=== PATIENT | female | born 1955 | race Caucasian/White ===

== ENCOUNTER 2018-08-01 10:15 | Inpatient (IN) ==
[2018-08-01] MEDS ORDERED: Ringers Solution, Lactated 1,000 ML IVC SCH (16:15)
[2018-08-01 17:14] LABS: Basophils # 0.1 K/mcL (0.0-0.2); Basophils % 0.7 %; Eosinophils # 0.6 K/mcL (0.0-0.6); Eosinophils % 5.3 %; Hematocrit 42.1 % (35.3-44.9); Hemoglobin 14.1 g/dL (11.5-15.4); Immature Granulocytes % 0.3 % (0-4); Lymphocytes # 2.9 K/mcL (0.6-4.6); Lymphocytes % 25.9 %; Mean Corpuscular HGB Conc 33.5 g/dL (31.6-35.5); Mean Corpuscular Volume 95.5 fL (83.0-100.0); Mean Platelet Volume 9.7 fL (9.4-12.4); Monocytes # 0.5 K/mcL (0.0-1.3); Monocytes % 4.7 %; Platelet Count 205 K/mcL (140-400); Red Blood Count 4.41 M/mcL (3.82-4.97); Red Cell Distribution Width 12.3 % (11.5-14.5); Segmented Neutrophils % 63.1 %
[2018-08-01 17:34] LABS: BUN/Creatinine Ratio 34 (6-26); Blood Urea Nitrogen 24 mg/dL (8-23); Calcium 9.7 mg/dL (8.6-10.3); Carbon Dioxide 24 mEq/L (23-29); Chloride 107 mEq/L (98-107); Glucose 79 mg/dL (70-105); Osmolality,Calculated 291 (280-300); Potassium 4.3 mEq/L (3.5-5.1); Sodium 139 mEq/L (136-145); eGFR For Non-African Americans > 60 (> 60)
[2018-08-01] MEDS: *HR* HYDROcodone/Acet 5/325 mg TABLET PO PRN (19:20)
--- NOTE | 2018-08-01 19:20 | Spine - History & Physical Rep ---
Date of Encounter: 08/01/18 Time of Encounter: 19:15 Assessment and Plan (1) Cervical myelopathy Current visit: Yes Status: Chronic (2) Cervical spinal cord compression Current visit: Yes Status: Chronic on physical exam the patient is alert and answers questions appropriately. Afebrile vital signs stable. Trachea is midline. Lungs are clear. Cardiovascular regular rate and rhythm. Abdomen is soft nontender nondistended. She has an unsteady gait pattern. She has a positive Kenan sign. She has hyperreflexia in the upper and lower extremities. She has a positive inverted radial reflex. She has some diminished sensation to light touch in the distal upper extremies. She has no clonus. There is no clubbing, cyanosis, or edema. MRI of the cervical spine reveals moderate/severe stenosis centrally C3-C7. There are multilevel degenerative changes. There is severe bilateral foraminal stenosis C3-C7. There is myelomalacia on T2 images of the cervical cord from C3-C5. Impression: 1) cervical myelopathy 2) spinal cord compression 3) cervical stenosis 4) myelomalacia of the cervical cord Plan: Due to her progressive symptoms, worsening gait, abnormal upper motor neuron findings, and likelihood for neurologic progression I find it reasonable to consider surgery in the form of a posterior cervical fusion C3-C7. Risk, benefits, and possible complications were discussed and the patient would like to proceed. Patient understands she needs medical clearance and optimization prior to surgery. (3) Cervical stenosis of spinal canal Current visit: Yes Status: Chronic (4) Myelomalacia of cervical cord Current visit: Yes Status: Chronic History of Present Illness Chief complaint: Difficulty walking, clumsy, difficulty controlling hands. HPI: Ms. Qureshi is a 63 year old female who complains of progressive worsening in gait, clumsiness, impairment and hand dexterity, and radicular symptoms in the upper extremities. She also complains of numbness in her hands. Symptoms have worsened over the past several weeks such that she now requires a cane as an ambulatory aid and has had several falls. she has significant difficulty with buttoning buttons, manipulation of utensils, and handwriting changes. She was seen in pain management by Dr. Riggins and was immediately referred for urgent surgical consultation. Due to her progressive symptoms she was admitted for definitive management. She denies bowel or bladder symptoms. She admits to difficulty walking and gait instability. Past Med Surg Social Fam HX - Past Medical History Medical history: COPD, GERD, hypertension Additional medical history: Neuropathy, gastric ulcer, Emphysema Psychiatric history: anxiety - Past Surgical History Additional surgical history: left leg surgery, broken colar bone, right wrist fx - Social History Smoking Status: Unknown if ever smoked Smokeless Tobacco Status: No Alcohol use: none Drug use: none - Family History Mother Hx Family Respiratory Disorders: Yes (COPD) Medications and Allergies ALPRAZolam [Xanax 1 MG Tablet] 1 mg PO TID 08/01/18 [History] Gabapentin [Neurontin] 600 mg PO TID 08/01/18 [History] Metoprolol [Lopressor] 50 mg PO BID 08/01/18 [History] Temazepam [Restoril] 30 mg PO HS 08/01/18 [History] Allergy/AdvReac Type Severity Reaction Status Date / Time No Known Allergies Allergy Verified 08/01/18 14:38 Results - Labs Result Diagrams: 08/01/18 16:25 08/01/18 16:25 Labs: Abnormal lab results BUN 24 mg/dL (8-23) H 08/01/18 16:25 BUN/Creatinine Ratio 34 (6-26) H 08/01/18 16:25 H & H 08/01/18 Range/Units 16:25 Hgb 14.1 (11.5-15.4) g/dL Hct 42.1 (35.3-44.9) % All other labs normal. - VTE Reasons for not Prescribing Prophylaxis: Treatment not Indicated - Low risk for VTE
--- NOTE | 2018-08-01 20:04 | Anesthesia Evaluation PreOp ---
Date of Encounter: 08/01/18 Time of Encounter: 20:02 - Past History Planned Operation: C3-7 Posterior Cervical Fusion re: cervical myelpathy Cardiac History: HTN Pulmonary History: COPD [employer]ECTIVE [employer] E[employer] History: Other (Unsteady gait & hyperreflexic upper/lower extremities [per H&P] secondary to moderate/severe cervical stenosis & myelomalacia. Peripheral Neuropathy/Burning pain R>>L hands, feet & legs) Other Medical History: Denies Any Significant HX, GERD (Hx gastric ulcer) Anesthesia History: No Prior Anesthetic Complications, Past Anesthesia (LLE surgery, R-wrist Fx) Alcohol Use: none Drug use: none Medications and Allergies ALPRAZolam [Xanax 1 MG Tablet] 1 mg PO TID 08/01/18 [History] Gabapentin [Neurontin] 600 mg PO TID 08/01/18 [History] Metoprolol [Lopressor] 50 mg PO BID 08/01/18 [History] Temazepam [Restoril] 30 mg PO HS 08/01/18 [History] Allergy/AdvReac Type Severity Reaction Status Date / Time No Known Allergies Allergy Verified 08/01/18 14:38 - Meds/Allergy Pre-op Review Medications Reviewed: Yes Allergies Reviewed: Yes Beta Blockers on Current Med List: Yes (Metoprolol) If Beta Blockers taken, Date/Time (Last Dose taken): 08/01/2018 @ 2100 Anesthesia Results - Labs 08/01/18 16:25 08/01/18 16:25 Laboratory Results Laboratory Tests 08/01/18 08/01/18 16:25 16:25 APTT 30.2 Creatinine 0.70 Est GFR (Non-Af Amer) > 60 Cervical MRI 06/28/2018 IMPRESSION: Probable mild high T2 signal abnormality within the cervical spinal cord from C3 through C5. Mild myelomalacia is suspected. Moderate central canal stenosis from C3 through C7 due to shallow broad disc osteophyte complex and posterior ligamentous hypertrophy as well as congenitally short pedicles. Multilevel bilateral neural foraminal stenosis of moderate to severe degree as noted above. - Imaging EKG: pending Chest x-ray: report reviewed Additional studies: Laboratory Results Impressions Chest X-Ray 08/01/18 16:08 IMPRESSION: Negative portable study. D/ / Gricelda Toribio Cha, MD / Gricelda Toribio Cha, MD Interpreting Provider: Gricelda Toribio Cha, MD Anesthesia Exam Vital Signs Temp Pulse Resp BP Pulse Ox 08/01/18 19:25 98.8 F 92 16 173/92 93 08/01/18 14:49 98.1 F 72 16 153/80 97 08/01/18 13:24 97.6 F 72 16 144/84 98 Intake and Output 08/01/18 08/01/18 08/01/18 07:59 15:59 23:59 Intake Total 240 / 240 Balance 240 / 240 Intake: Oral 240 / 240 Other: Meal Dinner Percent of Meal Consumed 100% Weight 43.5 kg Patient Weight 08/01/18 23:59 Weight 43.5 kg Height: 5'4" Weight: 95# bmi = 16.5 NPO (# of Hours): MNoc - HEENT Pupil (Motor): Pupils equal, EOMI Mallampati: II Teeth: Edentulous Denture Type: Upper: Complete, Partial Oral Opening: Greater than 3 - DETECTIVE PR[employer] E[employer] LOC: Oriented [employer]ECT[employer] Motor: Normal Face, Deficit RUE, Deficit LUE, Deficit RLE, Deficit LLE [employer] Sensory: Normal: Face, Deficit: RUE, LUE, RLE, LLE - Cardiac Rhythm: Regular Murmur: None - Pulmonary Breath Sounds: bilateral Clear Respiratory Effort: Symmetrical Anesthesia Assess/Plan ASA Score: 3 (COPD, HTN, Cervical myelopathy, GERD/gastric ulcer) Level of consciousness: Cooperative Anesthetic Plan: General Monitoring Plan: Standard Monitors Recovery Plan: PACU Anes Supervising Prov Stmt: Pt seen/evaluated, R&B Discussed, questions answered and consent obtained. Krysten Sierra MD
[2018-08-01] MEDS: ALPRAZolam 1 MG TABLET PO SCH (22:14)
[2018-08-01] MEDS: Temazepam 15 MG CAPSULE PO SCH (22:14)
[2018-08-01] MEDS: Gabapentin 300 MG CAPSULE PO SCH (22:14)
--- NOTE | 2018-08-01 22:22 | Internal Medicine Consult Note ---
<Ramón Watt - Last Filed: 08/01/18 22:44> Date of Encounter: 08/01/18 Time of Encounter: 22:20 - Assessment and plan (1) Nonspecific abnormal electrocardiogram (ECG) (EKG) Current Visit: Yes Status: Acute Assessment and plan: 63YO F consulted for preop evaluation (cervical vertebrae fusion). EKG done tonight shows ST changes in anterior leads V3-V4, PVCs, and possible IV conduction delay. Patient reports having CP when going up a flight of stairs. SOB with exertion. No CP at rest currently. No cardiac workup in the past. On metoprolol for HTN. Patient is a high risk for surgery at this time. - Ordered repeat EKG at 6AM and echo - Placed consult with cardiology - NPO midnight - Spoke with Dr. Ferrara and let him know our plan (2) DVT prophylaxis Current Visit: Yes Status: Acute Assessment and plan: SCD (3) Hypertension Current Visit: Yes Status: Acute Assessment and plan: Patient has chronic hypertension on metoprolol. NPO at midnight so put on labetolol 10mg Q6 PRN. Qualifiers: Qualified Code(s): I10 - Essential (primary) hypertension - Time Spent With Patient Total time spent is greater than 50% in coordination of care (as documented) at patient's floor/unit and/or counseling patient: Internal Medicine - CN: HPI - Data of Consult Patient: new to practice Consult date: 08/01/18 Requesting Physician: Judson Mir Jr MD - Consult Narrative Reason for consult: Preop evaluation History of present illness: Ms. Qureshi is a 63 year old female consulted by Dr. Ferrara for preop evaluation with history of HTN, COPD, anxiety, and cervical stenosis. Patient is scheduled for cervical fusion of C3-C7. EKG done today shows ST elevation in anterior leads V3-V4. Patient has never been evaluated by a fleet manager/dispatch. No previous EKG, echo, stress tests. She has no history of SD. She reports feeling CP when going up a flight of stairs, but not at rest. Also complains of dyspnea with exertion which may be related to COPD. Patient reports that she needs to sleep elevated with multiple pillows. Patient has hypertension with blood pressure of 170/90 most recently. She is on metoprolol for HTN. She currently denies CP, palpitations, SOB, diaphoresis, abdominal pain. Patient is not diabetic and has high cholesterol controlled on a statin. Denies family history of heart disease. Patient has COPD with a history of smoking for 40 years at 1PPD. She stopped smoking 1 month ago. Per ARISCAT score daniel is an intermediate risk (13.3%) of pulmonary related surgical complication. Patient reports having daily sputum that is yellow at baseline. Patient denies recent fever, N/V, changes in bowel movements or urination, weight changes. Past Med Surg Social Fam HX - Past Medical History Medical history: COPD, GERD, hypertension Additional medical history: Neuropathy, gastric ulcer, Emphysema Psychiatric history: anxiety - Past Surgical History Additional surgical history: left leg surgery, broken colar bone, right wrist fx - Social History Smoking Status: Unknown if ever smoked Smokeless Tobacco Status: No Alcohol use: none Drug use: none - Family History Mother Hx Family Respiratory Disorders: Yes (COPD) - Constitutional Constitutional: no chills, no fever(s), no weight gain, no weight loss - Cardiovascular Cardiovascular ROS IM: chest pain (with exertion), dyspnea, irregular heart rhythm - Respiratory Respiratory: cough, wheezing, excessive phlegm production - Gastrointestinal Gastrointestinal: no abdominal pain, no bloating, no constipation, no diarrhea - Genitourinary Genitourinary: no dysuria, no urinary frequency, no urinary urgency - Musculoskeletal Musculoskeletal ROS IM: neck pain - Neurological Neurological ROS: tingling, no focal weakness Additional comments: tingling of extremties on gabapentin Internal Medicine - CN: Meds ALPRAZolam [Xanax 1 MG Tablet] 1 mg PO TID 08/01/18 [History] Gabapentin [Neurontin] 600 mg PO TID 08/01/18 [History] Metoprolol [Lopressor] 50 mg PO BID 08/01/18 [History] Temazepam [Restoril] 30 mg PO HS 08/01/18 [History] Allergy/AdvReac Type Severity Reaction Status Date / Time No Known Allergies Allergy Verified 08/01/18 14:38 Hospitalist - CN: Exam - Constitutional Vitals: Temp Pulse Resp BP Pulse Ox 98.8 F 92 16 173/92 93 08/01/18 19:25 08/01/18 19:25 08/01/18 19:25 08/01/18 19:25 08/01/18 19:25 General appearance IM: Present: A&O X 3, pleasant, no acute distress Exam: . - Head Head exam: Present: atraumatic, normal inspection - Eye Eye exam: Present: EOMI, normal appearance. Absent: conjuntiva pink - Neck Neck exam general surgery: Present: tenderness, supple, trachea midline Additional comments: C4-C7 - Respiratory Respiratory exam: Present: wheezes. Absent: accessory muscle use, respiratory distress - Cardiovascular Cardiovascular exam IM: Present: RRR, +S1, +S2 - GI/Abdominal GI/Abdominal exam IM: Absent: tenderness - Extremities Exam Extremities exam IM: Present: normal capillary refill, pedal edema (Mild edema 1-2+), warm. Absent: cyanotic, tenderness - Neurological Exam Neurological exam: Present: alert, motor sensory deficit (B/L Upper and lower extermity weakness and sensory deficits), oriented X3 - Psychiatric Psychiatric exam: Present: normal affect - Skin Skin exam IM: Present: dry, intact, warm Internal Medicine - CN: Reslt - Labs CBC & Chem 7: 08/01/18 16:25 08/01/18 16:25 Labs: Short CBC 08/01/18 Range/Units 16:25 WBC 11.1 (4.3-11.1) K/mcL Hgb 14.1 (11.5-15.4) g/dL Hct 42.1 (35.3-44.9) % Plt Count 205 (140-400) K/mcL Neutrophils # 7.0 (1.6-8.9) K/mcL BMP 08/01/18 16:25 Sodium 139 Potassium 4.3 Chloride 107 Carbon Dioxide 24 BUN 24 H Creatinine 0.70 Glucose 79 Calcium 9.7 - Impressions Impressions Chest X-Ray 08/01/18 16:08 IMPRESSION: Negative portable study. D/ / Gricelda Toribio Cha, MD / Gricelda Toribio Cha, MD Interpreting Provider: Gricelda Toribio Cha, MD Consult Discharge Plan - Plan Referrals: NONE,PCP [Primary Care Provider] - <Afshin Oconnor - Last Filed: 08/02/18 08:04> Date of Encounter: 08/02/18 - Time Spent With Patient Total time spent is greater than 50% in coordination of care (as documented) at patient's floor/unit and/or counseling patient: Internal Medicine - CN: HPI - Data of Consult Requesting Physician: Judson Mir Jr MD - Consult Narrative History of present illness: Ms. Qureshi is a 63 year old female Hospitalist - CN: Exam - Constitutional Vitals: Temp Pulse Resp BP Pulse Ox 97.3 F L 65 17 118/77 93 08/02/18 07:43 08/02/18 07:43 08/02/18 07:43 08/02/18 07:43 08/02/18 07:43 Internal Medicine - CN: Reslt - Labs CBC & Chem 7: 08/02/18 05:31 08/02/18 05:31 Labs: Short CBC 08/01/18 08/02/18 Range/Units 16:25 05:31 WBC 11.1 7.2 (4.3-11.1) K/mcL Hgb 14.1 14.7 (11.5-15.4) g/dL Hct 42.1 44.2 (35.3-44.9) % Plt Count 205 210 (140-400) K/mcL Neutrophils # 7.0 (1.6-8.9) K/mcL BMP 08/01/18 08/02/18 16:25 05:31 Sodium 139 138 Potassium 4.3 4.4 Chloride 107 107 Carbon Dioxide 24 25 BUN 24 H 24 H Creatinine 0.70 0.82 Glucose 79 86 Calcium 9.7 9.7 - Impressions Impressions Chest X-Ray 08/01/18 16:08 IMPRESSION: Negative portable study. D/ / Gricelda Toribio Cha, MD / Gricelda Toribio Cha, MD Interpreting Provider: Gricelda Toribio Cha, MD - Attending Attestation I saw and evaluated the patient. I reviewed the residents note, performed my own physical examination and agree with findings and plan as documented in the residents note. Patient seen and examined on 08/01/18. Consult requested from Dr. Mir for preop clearance. History of COPD, and EKG found to be concerning. Patient has never been evaluated by cardiology. Patient has exertional dsypnea. Recommend cardiology evaluation with echocardiogram in the morning.
[2018-08-02] MEDS ORDERED: Bacitracin 50,000 UNIT, Polymyxin B Sulfate 500,000 UNIT, Sodium Chloride IRRigation 1,... IR ONE (06:00)
[2018-08-02 06:22] LABS: Hematocrit 44.2 % (35.3-44.9); Hemoglobin 14.7 g/dL (11.5-15.4); Mean Corpuscular HGB Conc 33.3 g/dL (31.6-35.5); Mean Corpuscular Hemoglobin 31.8 pg (28.0-33.3); Mean Corpuscular Volume 95.7 fL (83.0-100.0); Mean Platelet Volume 9.8 fL (9.4-12.4); Platelet Count 210 K/mcL (140-400); Red Blood Count 4.62 M/mcL (3.82-4.97); Red Cell Distribution Width 12.4 % (11.5-14.5)
[2018-08-02 06:43] LABS: BUN/Creatinine Ratio 29 (6-26); Blood Urea Nitrogen 24 mg/dL (8-23); Calcium 9.7 mg/dL (8.6-10.3); Carbon Dioxide 25 mEq/L (23-29); Chloride 107 mEq/L (98-107); Glucose 86 mg/dL (70-105); Osmolality,Calculated 289 (280-300); Potassium 4.4 mEq/L (3.5-5.1); Sodium 138 mEq/L (136-145); eGFR For Non-African Americans > 60 (> 60)
[2018-08-02] MEDS ORDERED: Ipratropium/Albuterol Neb 3 ML IH PRN (08:33)
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
[2018-08-02] MEDS ORDERED: *HR* Propofol 200 MG/20 ML VIAL IVP ONE (09:11)
[2018-08-02] MEDS ORDERED: Ondansetron 4 MG/2 ML VIAL ONE (09:11)
[2018-08-02] MEDS ORDERED: Neostigmine Methylsulfate 3 MG/3 ML SYRINGE ONE (09:11)
[2018-08-02] MEDS ORDERED: *HR* FentaNYL (PF) 100 MCG/2 ML VIAL ONE ×3 (09:11→15:43)
[2018-08-02] MEDS ORDERED: Lidocaine -MPF 2% 2 ML VIAL ONE (09:11)
[2018-08-02] MEDS ORDERED: Dexamethasone 4 MG/ML VIAL ONE ×2 (09:11)
[2018-08-02] MEDS ORDERED: *HR* Succinylcholine 200 MG/10 ML VIAL IVP ONE (09:11)
[2018-08-02] MEDS ORDERED: *HR* Rocuronium Bromide 50 MG/5 ML VIAL ONE (09:11)
--- NOTE | 2018-08-02 09:25 | Cardiology Consult Note ---
<Kell Palomino - Last Filed: 08/02/18 11:07> Date of Encounter: 08/02/18 Time of Encounter: 09:23 Assessment and Plan (1) Exertional chest pain Current Visit: Yes Status: Acute - echocardiogram shows EF 40-45% which is new - troponin, trend if not normal - Continue NPO through 08/03/18 - recommend cardiac cath, will try to add pt to schedule today - optimize medical management post cath - Pt is high risk for surgery at this time, recommend delaying planned ortho procedure until 30d after cath - will continue to follow (2) ST segment changes on electrocardiogram Current Visit: Yes Status: Acute - troponin - repeat EKG - echocardiogram - stress test 08/03/18 Discussion w patient/family: The assessment and plan as outlined above was discussed with the patient and/or family members who expressed understanding and agreement. All questions were answered. Thank you for involving us in the care of your patient. Please call with any questions. History of Present Illness Consult date: 08/02/18 Requesting physician: Afshin Oconnor Consult reason: pre-op clearance Chief complaint: spinal surgery History of present illness: Ms. Qureshi is a 63 year old female with PMHx of HTN, COPD that was admitted for cervical fusion surgery and reported a hx of chest pain with exertion that has been present for years but getting worse over the last three months. She reports that the pain starts when she is going up stairs or walking for any length of time, feels like a heaviness located substernally with radiation to left arm, is relieved by sitting for at least five minutes, and is a 10/10 in severity. She states that over the last three months it is happening more frequently and sometimes will happen every day. She also reports associated symptoms with the pain of diaphoresis, nausea without vomiting, lightheadedness. She denies syncope. She also reports that her feet and legs swell when she puts on shoes, but is relieved by taking her shoes off. She quit smoking 1 month ago after smoking 2 ppd x 45 years. She also reports a hx of a "bleeding ulcer" that was diagnosed 15 years ago. Past Med Surg Social Fam HX - Past Medical History Medical history: COPD, GERD, hypertension Additional medical history: Neuropathy, gastric ulcer, Emphysema Psychiatric history: anxiety - Past Surgical History Additional surgical history: left leg surgery, broken colar bone, right wrist fx - Social History Smoking Status: Unknown if ever smoked Smokeless Tobacco Status: No Alcohol use: none Drug use: none - Family History Mother Hx Family Respiratory Disorders: Yes (COPD) Medications and Allergies ALPRAZolam [Xanax 1 MG Tablet] 1 mg PO TID 08/01/18 [History] Gabapentin [Neurontin] 600 mg PO TID 08/01/18 [History] Metoprolol [Lopressor] 50 mg PO BID 08/01/18 [History] Temazepam [Restoril] 30 mg PO HS 08/01/18 [History] Cholecalciferol (Vitamin D3) [Vitamin D3] 10,000 unit PO QWEEK 08/02/18 [History] Cyclobenzaprine [Flexeril] 10 mg PO TID 08/02/18 [History] HydrOXYzine Pamoate [Vistaril] 50 mg PO DAILY 08/02/18 [History] Omeprazole [PriLOSEC] 40 mg PO DAILY 08/02/18 [History] Sertraline [Zoloft] 50 mg PO DAILY 08/02/18 [History] Simvastatin [Zocor] 40 mg PO HS 08/02/18 [History] Allergy/AdvReac Type Severity Reaction Status Date / Time No Known Allergies Allergy Verified 08/01/18 14:38 All Systems Review: The remainder of the systems were reviewed and are negative - Constitutional Constitutional: no chills, no fever(s) - Cardiovascular Cardiovascular: chest pain with exertion, diaphoresis, dyspnea on exertion, radiating jaw, neck or arm pain, leg edema, lightheadedness, no chest pain at rest, no syncope - Respiratory Respiratory: dyspnea, no cough - Gastrointestinal Gastrointestinal: nausea, no abdominal pain - Musculoskeletal Musculoskeletal: back pain - Psychiatric Psychiatric: anxiety Physical Examination Vital Signs, Last 4 Hours Temp Pulse Resp BP Pulse Ox 08/02/18 07:43 97.3 F L 65 17 118/77 93 08/02/18 05:30 97.8 F 70 16 108/68 95 General: Conversant, No Apparent Distress HEENT: Atraumatic, Normocephaly, Mucus Membranes Moist Neck: No JVD, Normal carotid pulses Cardiac: Other (diminished heart sounds) Lungs: Normal Breath Sounds, No Wheeze, Rales, Rhonchi Neuro: Alert and responsive, No focal deficits noted Abdomen: Soft, Non-Tender Skin: No rashes noted on visualized skin Musculoskeletal: No Chest Wall Tenderness Extremities: No Clubbing, No Cyanosis, No Edema, Normal Pulses Results 08/02/18 05:31 08/02/18 05:31 Lab Results 08/01/18 08/01/18 08/01/18 16:25 16:25 16:25 WBC 11.1 Hgb 14.1 Hct 42.1 Plt Count 205 APTT 30.2 Sodium 139 Potassium 4.3 Chloride 107 Carbon Dioxide 24 BUN 24 H Creatinine 0.70 Glucose 79 Calcium 9.7 08/02/18 12 05:31 05:31 WBC 7.2 Hgb 14.7 Hct 44.2 Plt Count 210 APTT Sodium 138 Potassium 4.4 Chloride 107 Carbon Dioxide 25 BUN 24 H Creatinine 0.82 Glucose 86 Calcium 9.7 - Imaging and Cardiology Chest Xray: report reviewed, image reviewed Echo: report reviewed Consult Discharge Plan - Plan Referrals: NONE,PCP [Primary Care Provider] - <Melissa Ayala - Last Filed: 08/02/18 15:59> Date of Encounter: 08/02/18 - Attending Attestation I examined this patient and my medical decision-making was reviewed with the Resident Physician. I agree with the documented findings, disposition and treatment plan as described. Ms. Qureshi presents with chest pain. She was planning elective surgery for cervical myelopathy. We were asked in consultation to risk stratify. Patient described a few month history of exertional chest pain associated with dyspnea limiting her functional activities. Does admit to known COPD/emphysema. Has risk factors for CAD including a long history of smoking. She had an echo performed demonstrating reduction of LVEF with moderate to severe AR. Given newly reduced LVEF in combination with exertional symptoms and risk factors for CVD in setting of preoperative evaluation for cervical fusion under general anesthesia, we have recommended proceeding with LHC for further diagnostic evaluation. The R/B/A of LHC were discussed with the patient in detail with family present. The patient expressed understanding of risks and agreement to proceed. LHC findings reviewed. Normal coronaries. LVEF 50% by LV gram. Case discussed with Dr. Mir. Patient does not require PCI. Recommend proceeding with surgery at moderate CV risk. Will need outpatient follow up to further evaluate aortic regurgitation. Will sign off. Assessment and Plan Discussion w patient/family: The assessment and plan as outlined above was discussed with the patient and/or family members who expressed understanding and agreement. All questions were answered. Thank you for involving us in the care of your patient. Please call with any questions. History of Present Illness History of present illness: Ms. Qureshi is a 63 year old female All Systems Review: The remainder of the systems were reviewed and are negative Physical Examination Vital Signs, Last 4 Hours Temp Pulse Resp BP Pulse Ox 08/02/18 12:06 97.9 F 59 18 120/72 95 Results 08/02/18 05:31 08/02/18 05:31 Lab Results 08/01/18 08/01/18 08/01/18 16:25 16:25 16:25 WBC 11.1 Hgb 14.1 Hct 42.1 Plt Count 205 APTT 30.2 Sodium 139 Potassium 4.3 Chloride 107 Carbon Dioxide 24 BUN 24 H Creatinine 0.70 Glucose 79 Calcium 9.7 Troponin I 08/02/18 08/02/18 08/02/18 05:31 05:31 10:08 WBC 7.2 Hgb 14.7 Hct 44.2 Plt Count 210 APTT Sodium 138 Potassium 4.4 Chloride 107 Carbon Dioxide 25 BUN 24 H Creatinine 0.82 Glucose 86 Calcium 9.7 Troponin I < 0.03
[2018-08-02] MEDS: ALPRAZolam 1 MG TABLET PO SCH ×3 (10:50→20:24)
[2018-08-02] MEDS: Gabapentin 300 MG CAPSULE PO SCH ×3 (10:50→20:24)
[2018-08-02] MEDS: *HR* HYDROcodone/Acet 5/325 mg TABLET PO PRN (10:51)
[2018-08-02] MEDS ORDERED: CeFAZolin Syr 2,000MG/20 ML 2,000 MG/20 ML SYRINGE IVPB ONE (11:00)
[2018-08-02] MEDS ORDERED: ISOVUE-370 200 ML INFUS..BTL ONE (12:59)
[2018-08-02] MEDS ORDERED: Nitroglycerin 1,000 MCG/10 ML VIAL IV ONE (12:59)
[2018-08-02] MEDS ORDERED: Heparin 1,000 UNITS/500 mL 500 ML ONE (12:59)
[2018-08-02] MEDS ORDERED: *HR* Heparin 10,000 UNIT/10 ML VIAL ONE (12:59)
[2018-08-02] MEDS ORDERED: 0.9 % Sodium Chloride 1,000 ML ONE ×3 (12:59→14:35)
--- NOTE | 2018-08-02 13:01 | Electrocardiograph Report ---
[address] [address] Test Date: 2018-08-01 Pat Name: Marielena Qureshi Department: 114 Room: [facility] Gender: F [employer] Rol[employer] Operator: JEMAL : 1955 Requested By: Judson Mir Order Number: [id number] Reading MD: Scotty Odonnell Measurements Intervals [place] Rate: 65 P: 64 PA: 156 QRS: -32 QRSD: 139 T: 97 QT: 436 QTc: 447 Interpretive Statements SINUS RHYTHM WITH OCCASIONAL Atrial premature complexes MARKED LEFT AXIS DEVIATION Left bundle branch block Electronically Signed On 08-02-2018 12:59:26 EST by Scotty Odonnell
--- NOTE | 2018-08-02 13:16 | Pre-Sedation Evaluation ---
Pre-sedation evaluation - Pre-sedation checklist Date of procedure: 08/02/18 Procedure: [facility] Recent Vitals: Last Vital Signs Temp 97.9 F 08/02/18 12:06 Pulse 59 08/02/18 12:06 Resp 18 08/02/18 12:06 BP 120/72 08/02/18 12:06 Pulse Ox 95 08/02/18 12:06 H&P (including ROS) documented in medical record: Yes Previous reaction to sedatives/anesthetics: No Dietary Status: NPO after Midnight Airway Assessment: Patient can open mouth completely, TMJ function normal, Micrognathia (under-bite, receding chin) absent, Neck with adequate range of mot ion Dentition: No loose teeth or bridges Possible difficult airway: No ASA Classification *see protocol: CLASS II-Mild systemic disease Plan of Care: Pt appropriate candidate for procedure/moderate/conscious sedation, Risks/benefits of procedure/sedation discussed w/ patient/family Cardiac Registry (Cardio Only) - Functional Capacity Functional Capacity: < 4 METS - Clincal Frailty Scale Clinical Frailty Scale: Vulnerable
--- NOTE | 2018-08-02 13:24 | Event Note ---
Date of Encounter: 08/02/18 Time of Encounter: 13:22 S/w Dr. Mir - he is requesting since patient has now become medical admission and is for the immediate foreseeable future nonoperative secondary to cardiac concerns - patient to be transfered to hospitalist service as primary. S/w Dr. Pepe who is in agreement.
[2018-08-02] MEDS ORDERED: *HR* Midazolam HCl 2 MG/2 ML VIAL ONE (14:47)
--- NOTE | 2018-08-02 16:01 | Invasive Diagnostic Lab Proc ---
Name: Marielena Qureshi Date of Study: 08/02/2018 Date: 1955 Ht: 64.2in Medical Record#: [id number] Age: 63 Wt: 94.80lb Gender: Female BSA: 1.43 Order #: [id number] BMI: 16.18 Physicians Procedure Physician: Layne Barnard MD, [facility] Referring MD: Referring MD: Staff Name Position Time In Michael Menon RT (R) Scrub 02:35 PM Umm Namita RT (R) Monitor 02:35 PM Ryan Joy RN Senior [employer] Consultant 02:35 PM Indications Indication Abnormal Test - ECHO Pre op Procedures Performed Procedure L HRT ARTERY/VENTRICLE ANGIO Pre-Procedure Checklist Informed consent is complete signed and on chart. H&P is on chart. ID band is on and ID verified with patient. Patient NPO for procedure The procedure was described for the patient and questions were answered. Blood Pressure: 120/72 ECG is on chart. Plan of Care Patient will tolerate the procedure without complications. Adequate level of comfort will be maintained. Hemodynamics will remain stable Patient will recover from procedure without complications. Respiratory function will be maintained. Cardiac rhythm will remain stable. Patient temperature will be maintained. Patient and/or family have verbalized understanding of the procedure. Patient Education Chief Complaint/Reason for Test: Cardiac Cath Developmental Category: Adult (18-64 years) Developmentally Appropriate for Age: Yes Learning Barriers: None Education Needs: Procedure Education Method: Verbal Information Taught: Cardiac Cath Educational Evaluation: Able to repeat information Intravenous Access Time IV Size Location DC'd Fluid/Drip Rate Units RN 01:32 PM 20g 1 09/02" Patent On Arrival Rt Antecubital 0.9NaCl 25 ml/hr Ryan Joy RN Allergies No Known Allergies Vital Signs Time BP (mmHg) HR (bpm) O2 Sat. RR (bpm) LOC 01:32 PM 120 / 72 59 95 % 18 5 = Fully awake and oriented or at pre-proc level 03:02 PM / % 5 = Fully awake and oriented or at pre-proc level 03:02 PM / % 5 = Fully awake and oriented or at pre-proc level 02:52 PM 160 / 80 56 98 % 3 02:56 PM 151 / 78 56 100 % 14 03:01 PM 137 / 79 56 100 % 14 03:06 PM 119 / 68 52 100 % 8 03:11 PM 122 / 65 52 100 % 11 04:24 PM 145 / 76 52 100 % 14 5 = Fully awake and oriented or at pre-proc level 04:29 PM 157 / 82 55 100 % 16 5 = Fully awake and oriented or at pre-proc level 04:34 PM 126 / 78 55 99 % 14 5 = Fully awake and oriented or at pre-proc level 03:52 PM 131 / 84 59 98 % 16 5 = Fully awake and oriented or at pre-proc level Procedural Medications Time Medication Dose Units Method Given By 02:55 PM Oxygen 2 L/min nasal cannula Ryan Joy RN 02:56 PM Versed 1 mg Intravenous Ryan Joy RN 02:56 PM Fentanyl 25 mcg Intravenous Ryan Joy RN 03:00 PM Versed 1 mg Intravenous Ryan Joy RN 03:00 PM Fentanyl 25 mcg Intravenous Ryan Joy RN 03:05 PM Lidocaine 2% 9 ml Subcutaneous Layne Barnard MD, FACC 03:49 PM Fentanyl 25 mcg Intravenous Justina Mar RN Tl Score Preprocedure Postprocedure Activity 2- Moves 4 extremities sustained head lift Activity 2- Moves 4 extremities sustained head lift Circulation 2- SBP +/= 20 points of pre-anesthetic level Circulation 2- SBP +/= 20 points of pre-anesthetic level Consciousness 2- Awake and alert oriented x 3 Consciousness 2- Awake and alert oriented x 3 O2 Saturation 2- Able to maintain O2 satruation of 92% on room air O2 Saturation 2- Able to maintain O2 satruation of 92% on room air Respiratory 2- Able to deep breathe and cough well Respiratory 2- Able to deep breathe and cough well Total Score 10 Total Score 10 Contrast Agent: Isovue Diagnostic Contrast: 46 ml Total Contrast: 46 ml Fluoro Dose: 736 mGy Procedure Log Time Note Enter By 01:15 PM Patient charges- Angio tray pack, Navilyst 3mm J, Pulse Oximetry and ACIST tubing and transducer [email or web address] 02:35 PM Michael Menon RT (R) Position: Scrub Time in: 14:35 [facility] 02:35 PM Namita Salomon RT (R) Position: Monitor Time in: 14:35 [facility] 02:35 PM Ryan Joy RN Position: Senior [employer] Consultant Time in: 14:35 [facility] 02:35 PM Case Delayed [facility] PM [facility] 02:50 PM CathStat 02:51 PM Vitals capture started with the following parameters, Patient=Adult, Interval=5 min, Initial Fdrygmwz=712 mmHg, Deflation Rate=5 mmHg, Cuff placed on Right Arm 02:52 PM HR=56 bpm, XKQQ=184/80 mmhg, SpO2=98.0 %, Resp=3 B/min, Comment=Sinus 02:55 PM Time: 14:55 Oxygen on at 2 L/min per nasal cannula by Ryan Joy RN [facility] PM Meet and murray completed PM Sign in performed according to hospital policy. Informed consent was obtained[facility] PM Procedure start [facility] PM Case Start PM Time: 14:56 Versed 1 mg Intravenous Given by Ryan [facility] PM Time: 14:56 Fentanyl 25 mcg Intravenous Given by Ryan Joy RN [facility] PM HR=56 bpm, UEVV=626/78 mmhg, ClG0=241.0 %, Resp=14 B/min, EtCO2=26 mmHg, Comment=Sinus 02:59 PM Pressure channel 1 zeroed. 03:00 PM Time: 15:00 Versed 1 mg Intravenous Given by Ryan Joy RN [facility] 03:00 PM Time: 15:00 Fentanyl 25 mcg Intravenous Given by Ryan Joy RN [facility] 03:01 PM HR=56 bpm, QSXU=535/79 mmhg, IqC3=085.0 %, Resp=14 B/min, EtCO2=23 mmHg, Comment=Sinus 03:02 PM Time: 15:02 Patient comfortable and pain free: Yes : PM Time: 15:02LOC: 5 = Fully awake and oriented or at pre-proc level 03:03 PM Clinical Presentation: Unstable angina 03:04 PM Time out was performed according to hospital policy. Conscious sedation and anesthesia was achieved (see medication log with in this report above) :05 PM Time: 15:05 9 ml Lidocaine 2% to right groin Subcutaneous Given by Layne Barnard MD, [facility] 03:05 PM Access obtained by percutaneous puncture. 4Fr 10cm Terumo [place] sheath placed in right Femoral artery. [id number] dspellman 03:06 PM 4Fr FL 4 catheter inserted over the wire DN dspellman 03:06 PM 0.035 145cm Navilyst 3mmJ wire [id number] dspellman 03:06 PM HR=52 bpm, DDHA=579/68 mmhg, ZtW9=265.0 %, Resp=8 B/min, EtCO2=27 mmHg, Comment=Sinus 03:07 PM LCA angiography performed in multiple views. dspellman 03:08 PM Catheter removed dspellman 03:09 PM 4Fr FR 4 catheter inserted over the wire [facility] dspellman 03:09 PM RCA angiography performed in multiple views. dspell 03:10 PM Catheter removed dspell 03:11 PM 4Fr Pigtail catheter inserted over the wire [facility] dspellman 03:11 PM Catheter crossed the aortic valve and was selectively placed in the left ventricle. Pressures recorded on pullback for left heart catheterization. dspell 03:11 PM Bolus angiogram of left Ventricle complete: 8 ml/sec for a total of 24 mls dspellman 03:11 PM HR=52 bpm, LPKN=049/65 mmhg, FsL9=650.0 %, Resp=11 B/min, Comment=Sinus 03:12 PM Pressure channel 1 zeroed. 03:12 PM Recorded Pressure: LV, HR=53, Condition=Condition 1 (Left Ventricle) LV 130/-7/1 03:12 PM Recorded Pressure: LV, Ao, HR=56, Condition=Condition 1 (Left Ventricle) LV 100/20/26, (Aorta) Ao 101/65/82 03:13 PM Catheter removed dspell 03:13 PM Bolus angiogram of right Femoral complete: 4 ml/sec for a total of 7 mls dspellman 03:14 PM Coronary Dominance: right dspell 03:15 PM Procedure completed at 15:15 08/02/2018 dspell 03:15 PM Did you address NICOLE flow and Dominance? Yes dspellman 03:17 PM Time: 15:02 Patient comfortable and pain free: Yes dspell 03:17 PM Time: 15:02LOC: 5 = Fully awake and oriented or at pre-proc level dspellman 03:18 PM Sign out completed: Radiation Dose 59.42 mGy, 735.61 cGy/cm2 Fluoro Time: 1.4 Isovue 370 - 200ml contrast 46 ml given by Layne Barnard MD, [facility]. Complications: None. The patient was discharged out of the [facility] in stable condition. Cardiac Rehab Consult needed: NoConfirmed administered medications: Yes dspellman 03:19 PM Isovue 370 - 200ml,1 Bottle(s) used. dspell 03:19 PM Sheath left in place to be pulled on floor/holding areaV+Pad dspellman 03:19 PM Estimated Blood Loss: minimal dspellman 03:19 PM Post ECG Sinus Bradycardia dspellman 03:19 PM Post Blood Pressure 131/81 dspellman 03:20 PM 15:20 Post Pulses Bilateral DP & PT 2+ dspellman 03:20 PM Information taught Cardiac Cath dspellman 03:20 PM Education needs Procedure, Plan of Care, and Responsibilities of Patient in Care dspellman 03:20 PM Learning barriers :None dspellman 03:20 PM Education Methods Verbal dspellman 03:21 PM Education evaluation Able to repeat information dspellman 03:21 PM Site status No bleeding/hematoma - Rt Groin as reported by Michael Menon RT (R) at 15:21 dspellman 03:21 PM Opsite applied dspellman 03:24 PM Lesion found in Proximal LAD. Pre Stenosis: 25 Pre NICOLE Flow: 3: Complete and Brisk Flow/Perfusion dspellman 03:26 PM Lesion found in Proximal Circumflex. Pre Stenosis: 20 Pre NICOLE Flow: 3: Complete and Brisk Flow/Perfusion dspellman 03:26 PM Lesion found in Proximal RCA. Pre Stenosis: 20 Pre NICOLE Flow: 3: Complete and Brisk Flow/Perfusion dspellman 03:27 PM Lesion found in Mid RCA. Pre Stenosis: 20 Pre NICOLE Flow: 3: Complete and Brisk Flow/Perfusion dspellman 03:27 PM Proximal Left Anterior Descending Coronary Artery with 25% stenosis. If graft is supplying this territory, 0 % stenosis. dspellman 03:27 PM Circumflex, Obtuse Marginal, Left Posterior Descending, and Left Posterolateral Coronary Arteries with 20 % stenosis. If graft is supplying this area, 0 % stenosis dspellman 03:27 PM Right Coronary, Right Posterior Descending Arteries with Right Posterolateral and Acute Marginal branches with 20 % stenosis. If graft is supplying this area, 0 % stenosis dspellman 03:27 PM Family placed in consult room. dspell 03:28 PM Patient out of room: 15:28 dspell 03:28 PM Complications: None [email or web address] 03:28 PM Report given to Fannie MERCADO Pt taken to [facility] Room #23. 15:28 [email or web address] 03:32 PM Pt to holdingroom to pull sheath, then will be taken to [facility]. dspell 03:49 PM Time: 15:49 Fentanyl 25 mcg Intravenous Given by Justina Mar RN 03:49 PM Arterial sheath pulled using manual compression and V+ Pad for 15 minutes by Marry Jim 03:49 PM Site status No bleeding/hematoma - Rt Groin as reported by at 15:49 suly 03:49 PM Opsite applied suly 03:51 PM [facility] Complications Complication None None Hemodynamics Pressures Site Systolic/A Wave Diastolic/V Wave Mean LV 130 -7 1 LV 100 20 26 AO 101 65 82 Post Procedure Information Blood Pressure: 131/81 mmHg Rhythm: Sinus Bradycardia Post procedural instructions were given Closure Device Time Device Success/Fail 08/02/2018 3:28:00 PM Manual Compression Site Checks Time Location Status Staff Sheath In? Note 03:21 PM Rt Groin No bleeding/hematoma Michael Menon RT (R) 03:49 PM Rt Groin No bleeding/hematoma 03:49 PM Rt Groin No bleeding/ No Hematoma Marry Jim Pulses Time Site Pre-Procedure Post-Procedure Note 08/02/2018 1:32:00 PM Bilateral DP & PT 2+ 3:20:00 PM Bilateral DP & PT 2+ Updated by RT Camryn ServinR) on 08/02/2018 3:53:21 PM electronically signed on 08/02/2018 3:54:25 PM with status of Final
[2018-08-02] MEDS: Temazepam 15 MG CAPSULE PO SCH (20:24)
[2018-08-03 09:20] LABS: Chol/HDL Ratio 2.9 (0-4.9)
[2018-08-03] MEDS: ALPRAZolam 1 MG TABLET PO SCH ×3 (09:22→21:37)
[2018-08-03] MEDS: Gabapentin 300 MG CAPSULE PO SCH ×3 (09:22→21:37)
--- NOTE | 2018-08-03 12:05 | Internal Med Progress Note ---
Hospitalist Progress Note - Encounter Date of Encounter: 08/03/18 Time of Encounter: 12:01 - Subjective Interval History: I have seen and evaluated the patient at bedside. patient still reporting cervical pain and upper extremities weakness, reports that the gabapentin alleviates the pain but not for more than 4 hours. denies chest pain, nausea or vomiting. - Exam Vitals: Temp Pulse Resp BP Pulse Ox 98.4 F 66 16 132/82 97 08/03/18 11:15 08/03/18 11:15 08/03/18 11:15 08/03/18 11:15 08/03/18 11:15 Exam: Vitals: Reviewed. General: Alert and oriented x4. In mild distress due to cervical pain and weakness. Skin: Normal color, no rash, no lesions. HEENT: EOM, pupils equal, round and reactive. Cardiovascular: RRR, Normal S1 & S2, no rubs, murmurs or gallops. Lungs: Clear to auscultation bilaterally, no wheezes or crackles. Abdomen: Soft, non-tender, no rigidity. Extremities: No deformity, no edema or tenderness, no joint swelling or clubbing. Neurological: Normal cognition and motor skills. strength is 5/5 in the upper and lower extr. Rest of the physical exam is non contributory - Assessment and Plan (1) Nonspecific abnormal electrocardiogram (ECG) (EKG) Current Visit: Yes Status: Acute Assessment and Plan: Patient underwent LHC yesterday, cardiology recommended Optimal medical therapy of patient's disease. risk factors modifications. Coronary Dominance: right Lesion Findings/Interventions * Left Main Coronary Artery The LMCA is angiographically free of disease. * Left Anterior Descending There is a 25% stenosis in the Proximal LAD. The lesion has a NICOLE flow of 3. * Circumflex There is a 20% stenosis in the Proximal Circumflex. The lesion has a NICOLE flow of 3. * Right Coronary Artery There is a 20% stenosis in the Proximal RCA. The lesion has a NICOLE flow of 3. There is a 20% stenosis in the Mid RCA. The lesion has a NICOLE flow of 3. Plan Patient has been cleared for surgery, per cardiology team. continue metoprolol 50mg/PO BID Lipid panel sent (2) Hypertension Current Visit: Yes Status: Chronic Assessment and Plan: Blood pressure has been well controlled. Continue metoprolol 50 mg by mouth twice a day. (3) Cervical myelopathy Current Visit: Yes Status: Chronic Assessment and Plan: patient scheduled for posterior cervical fusion C3-C7 tomorrow. cleared by cardiology for the procedure. (4) COPD (chronic obstructive pulmonary disease) Current Visit: Yes Status: Chronic Assessment and Plan: Not an acute exacerbation. Continue bronchodilators when necessary. DVT Prophylaxis: No chemical DVT prophylaxis. Patient is scheduled for surgery tomorrow morning. Continue mechanical DVT prophylaxis with intermittent pneumatic compression. - Summary of Assessment and Plan Summary of Assessment and Plan: Patient to remain in the hospital scheduled for posterior cervical fusion C3-C7 tomorrow. - Time Spent with Patient Total time spent is greater than 50% in coordination of care (as documented) at patient's floor/unit and/or counseling patient: Greater than 35 minutes (40) Plan of Care Discussed with: patient (and the nurse.) Internal Medicine: Result - Labs CBC & Chem 7: 08/02/18 05:31 08/02/18 05:31 - VTE Reasons for not Prescribing Prophylaxis: Treatment not Indicated - Low risk for VTE Consult Discharge Plan - Plan Referrals: NONE,PCP [Primary Care Provider] - (2) Hypertension Qualifiers: Qualified Code(s): I10 - Essential (primary) hypertension (4) COPD (chronic obstructive pulmonary disease) Qualifiers: COPD type: unspecified COPD Qualified Code(s): J44.9 - Chronic obstructive pulmonary disease, unspecified
[2018-08-03] MEDS: *HR* HYDROcodone/Acet 5/325 mg TABLET PO PRN ×2 (12:32→21:37)
[2018-08-03 12:55] LABS: Hematocrit 41.2 % (35.3-44.9); Hemoglobin 14.2 g/dL (11.5-15.4); Mean Corpuscular HGB Conc 34.5 g/dL (31.6-35.5); Mean Corpuscular Hemoglobin 32.5 pg (28.0-33.3); Mean Corpuscular Volume 94.3 fL (83.0-100.0); Mean Platelet Volume 9.8 fL (9.4-12.4); Platelet Count 198 K/mcL (140-400); Red Blood Count 4.37 M/mcL (3.82-4.97); Red Cell Distribution Width 12.1 % (11.5-14.5)
[2018-08-03 13:23] LABS: BUN/Creatinine Ratio 26 (6-26); Blood Urea Nitrogen 17 mg/dL (8-23); Calcium 9.4 mg/dL (8.6-10.3); Carbon Dioxide 23 mEq/L (23-29); Chloride 108 mEq/L (98-107); Glucose 107 mg/dL (70-105); Osmolality,Calculated 288 (280-300); Phosphorous 3.6 mg/dL (2.7-4.5); Potassium 4.4 mEq/L (3.5-5.1); Sodium 138 mEq/L (136-145); eGFR For Non-African Americans > 60 (> 60)
--- NOTE | 2018-08-03 13:49 | Spine Progress Note ---
Date of Encounter: 08/03/18 Time of Encounter: 13:47 - Assessment and Plan (1) Cervical myelopathy Current Visit: Yes Status: Chronic (2) Cervical spinal cord compression Current Visit: Yes Status: Chronic on physical exam the patient is alert and answers questions appropriately. Afeb rile vital signs stable. Trachea is midline. Lungs are clear. Cardiovascular regular rate and rhythm. Abdomen is soft nontender nondistended. She has an unsteady gait pattern. She has a positive Kenan sign. She has hyperreflexia in the upper and lower extremities. She has a positive inverted radial reflex. She has some diminished sensation to light touch in the distal upper extremies. She has no clonus. There is no clubbing, cyanosis, or edema. MRI of the cervical spine reveals moderate/severe stenosis centrally C3-C7. There are multilevel degenerative changes. There is severe bilateral foraminal stenosis C3-C7. There is myelomalacia on T2 images of the cervical cord from C3 -C5. Impression: 1) cervical myelopathy 2) spinal cord compression 3) cervical stenosis 4) myelomalacia of the cervical cord Plan: Due to her progressive symptoms, worsening gait, abnormal upper motor neuron findings, and likelihood for neurologic progression I find it reasonable to consider surgery in the form of a posterior cervical fusion C3-C7. Risk, benefits, and possible complications were discussed and the patient would like to proceed. Patient understands she needs medical clearance and optimization prior to surgery. 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 She underwent an echo and secondary to acute concerns subsequently underwent catheterization. The catheterization revealed coronary arteries are unremarkable for significant stenosis. They have stated she can proceed with surgery as a moderate risk. We will plan to proceed with surgery 08/04/2018. Patient remains awake, alert, with stable vital signs and no acute findings. Objective Vital signs: Vital Signs Temp Pulse Resp BP Pulse Ox 08/03/18 11:15 98.4 F 66 16 132/82 97 08/03/18 07:10 97.2 F L 82 16 114/78 94 08/02/18 23:54 97.8 F 74 17 132/70 98 08/02/18 20:07 97.8 F 77 16 138/75 99 08/02/18 19:24 98.8 F 88 16 107/59 93 08/02/18 19:02 98.0 F 57 15 128/70 96 08/02/18 18:00 97.9 F 58 16 128/62 97 08/02/18 17:17 98.2 F 57 14 120/67 97 08/02/18 16:40 97.4 F L 58 14 124/70 96 08/02/18 16:18 97.7 F 55 12 151/74 96 08/02/18 16:04 97.6 F 57 12 151/82 99 Intake and Output 08/02/18 08/03/18 08/03/18 23:59 07:59 15:59 Intake Total 360 / 360 Output Total 200 / 200 800 / 800 Balance -200 / -200 -800 / -800 360 / 360 Intake: Oral 360 / 360 Output: Urine 200 / 200 800 / 800 Other: Meal Lunch Percent of Meal Consumed 100% # Voids 1 1 Weight 43.2 kg Patient Weight 08/03/18 23:59 Weight 43.2 kg - Labs CBC & BMP: 08/03/18 12:09 08/03/18 12:09 Labs: Abnormal lab results Chloride 108 mEq/L (98-107) H 08/03/18 12:09 Glucose 107 mg/dL (70-105) H 08/03/18 12:09 LDL Cholesterol, Calc 101 mg/dL (0-99) H 08/03/18 08:32 HDL Cholesterol 61 mg/dL (40-59) H 08/03/18 08:32 Consult Discharge Plan - Plan Referrals: NONE,PCP [Primary Care Provider] -
[2018-08-03] MEDS: Temazepam 15 MG CAPSULE PO SCH (21:37)
[2018-08-04 05:45] LABS: Basophils # 0.1 K/mcL (0.0-0.2); Eosinophils # 0.6 K/mcL (0.0-0.6); Eosinophils % 9.5 %; Hematocrit 40.5 % (35.3-44.9); Hemoglobin 13.4 g/dL (11.5-15.4); Immature Granulocytes % 0.2 % (0-4); Lymphocytes # 2.9 K/mcL (0.6-4.6); Lymphocytes % 48.9 %; Mean Corpuscular HGB Conc 33.1 g/dL (31.6-35.5); Mean Corpuscular Hemoglobin 31.8 pg (28.0-33.3); Mean Platelet Volume 9.8 fL (9.4-12.4); Monocytes # 0.4 K/mcL (0.0-1.3); Monocytes % 6.6 %; Platelet Count 181 K/mcL (140-400); Red Blood Count 4.22 M/mcL (3.82-4.97); Red Cell Distribution Width 12.3 % (11.5-14.5); Segmented Neutrophils % 33.8 %
[2018-08-04] MEDS ORDERED: Bacitracin 50,000 UNIT, Polymyxin B Sulfate 500,000 UNIT, Sodium Chloride IRRigation 1,... IR ONE (06:00)
[2018-08-04 06:04] LABS: BUN/Creatinine Ratio 30 (6-26); Blood Urea Nitrogen 23 mg/dL (8-23); Calcium 9.6 mg/dL (8.6-10.3); Carbon Dioxide 26 mEq/L (23-29); Chloride 106 mEq/L (98-107); Glucose 105 mg/dL (70-105); Magnesium 1.9 mg/dL (1.6-2.6); Osmolality,Calculated 286 (280-300); Phosphorous 4.6 mg/dL (2.7-4.5); Potassium 4.4 mEq/L (3.5-5.1); Sodium 136 mEq/L (136-145); eGFR For Non-African Americans > 60 (> 60)
[2018-08-04] MEDS: *HR* HYDROcodone/Acet 5/325 mg TABLET PO PRN ×2 (08:51→23:22)
[2018-08-04] MEDS: ALPRAZolam 1 MG TABLET PO SCH ×3 (08:51→23:18)
[2018-08-04] MEDS: Gabapentin 300 MG CAPSULE PO SCH ×2 (08:52→15:43)
[2018-08-04] MEDS ORDERED: Ondansetron 4 MG/2 ML VIAL ONE (14:39)
[2018-08-04] MEDS ORDERED: Lidocaine -MPF 4% 5 ML AMPUL ONE (14:39)
[2018-08-04] MEDS ORDERED: Lidocaine -MPF 2% 2 ML VIAL ONE ×2 (14:39→15:16)
[2018-08-04] MEDS ORDERED: *HR* Succinylcholine 200 MG/10 ML VIAL IVP ONE (14:39)
[2018-08-04] MEDS ORDERED: Dexamethasone 4 MG/ML VIAL ONE ×2 (14:39→16:28)
[2018-08-04] MEDS ORDERED: *HR* FentaNYL (PF) 100 MCG/2 ML VIAL ONE (14:44)
[2018-08-04] MEDS ORDERED: *HR* Propofol 200 MG/20 ML VIAL IVP ONE ×2 (14:45→18:31)
[2018-08-04] MEDS ORDERED: *HR* Remifentanil 1 MG VIAL IVP ONE ×2 (15:15→15:16)
[2018-08-04] MEDS ORDERED: Propofol 500 MG/50 ML INFUS..BTL ONE (15:15)
[2018-08-04] MEDS ORDERED: EPHEDrine 50 MG/ML VIAL ONE ×2 (16:20→18:05)
--- NOTE | 2018-08-04 16:49 | Internal Med Progress Note ---
Hospitalist Progress Note - Encounter Date of Encounter: 08/04/18 Time of Encounter: 12:00 - Subjective Interval History: No new complaints, unchanged neck pain and UE weakness/tingling. No chest pain, SOB, palpitation, orthopnea, PND, or LE swelling. - Exam Vitals: Temp Pulse Resp BP Pulse Ox 97.6 F 57 15 117/71 96 08/04/18 11:18 08/04/18 11:18 08/04/18 11:18 08/04/18 11:18 08/04/18 11:18 Exam: Vitals: Reviewed. General: Alert and oriented x4. Cardiovascular: RRR, Normal S1 & S2, no rubs, murmurs or gallops. Lungs: Clear to auscultation bilaterally, no wheezes or crackles. Abdomen: Soft, non-tender, no rigidity. Extremities: No deformity, no edema or tenderness, Neurological: Grossly non-focal - Assessment and Plan (1) Cervical myelopathy Current Visit: Yes Status: Chronic Assessment and Plan: For op today continue home dose of gabapentin [facility] 08/02 revealed non-obstructive CAD pre-op eval per cardiology (2) Nonspecific abnormal electrocardiogram (ECG) (EKG) Current Visit: Yes Status: Acute Assessment and Plan: Patient underwent [facility] 08/02, non-obstructive CAD Echo showed EF 40-45% and global LV systolic dysfunction. Also has mod-severe AR . Does not report significant EtOH history on bb, statin will start ASA post-op follow with cardiology outpatient (3) Hypertension Current Visit: Yes Status: Chronic Assessment and Plan: continue home meds (4) COPD (chronic obstructive pulmonary disease) Current Visit: Yes Status: Chronic Assessment and Plan: Not an acute exacerbation. Continue bronchodilators when necessary. DVT Prophylaxis: EPCD - Time Spent with Patient Total time spent is greater than 50% in coordination of care (as documented) at patient's floor/unit and/or counseling patient: Plan of Care Discussed with: patient Internal Medicine: Result - Labs CBC & Chem 7: 08/04/18 05:30 08/04/18 05:30 Labs: Short CBC 08/04/18 Range/Units 05:30 WBC 5.9 (4.3-11.1) K/mcL Hgb 13.4 (11.5-15.4) g/dL Hct 40.5 (35.3-44.9) % Plt Count 181 (140-400) K/mcL Neutrophils # 2.0 (1.6-8.9) K/mcL BMP 08/04/18 05:30 Sodium 136 Potassium 4.4 Chloride 106 Carbon Dioxide 26 BUN 23 Creatinine 0.76 Glucose 105 Calcium 9.6 - VTE Reasons for not Prescribing Prophylaxis: Treatment not Indicated - Low risk for VTE Consult Discharge Plan - Plan Referrals: NONE,PCP [Primary Care Provider] - (3) Hypertension Qualifiers: Hypertension type: essential hypertension Qualified Code(s): I10 - Essential (primary) hypertension (4) COPD (chronic obstructive pulmonary disease) Qualifiers: COPD type: unspecified COPD Qualified Code(s): J44.9 - Chronic obstructive pulmonary disease, unspecified
[2018-08-04] MEDS ORDERED: *HR* Promethazine 25 MG/ML VIAL IVP PRN (17:13)
[2018-08-04] MEDS ORDERED: *HR* Meperidine 25 MG/ML SYRINGE IVP PRN (17:13)
[2018-08-04] MEDS ORDERED: Ondansetron 4 MG/2 ML VIAL IVP ONE (17:13)
[2018-08-04] MEDS ORDERED: *HR* OxyCODONE Immed Rel 5 MG TABLET PO PRN ×2 (17:13→21:28)
[2018-08-04] MEDS ORDERED: *HR* HYDROmorphone (PF) 1 MG/ML SYRINGE IVP PRN (17:13)
[2018-08-04] MEDS ORDERED: *HR* PHENYLEPHRINE 1,000 MCG/10 ML SYRINGE IVP ONE ×2 (17:30)
[2018-08-04] MEDS ORDERED: *HR* Morphine 10 MG/ML VIAL ONE (19:46)
--- NOTE | 2018-08-04 20:10 | Orthopedic Operative Note ---
Date of procedure: 08/04/18 Pre-op diagnosis: Cervical stenosis, cervical myelopathy, myelomalacia cervical cord Post-op diagnosis: same Operation/Findings: Posterior cervical fusion C3-C7: Patient was brought to the operative theater where he successfully underwent general endotracheal intubation. He was given antibiotics prior to the start of the procedure. Compression boots and stockings were used for deep vein thrombosis prophylaxis. A Michael catheter was placed. Leads were placed on the upper extremities and lower extremities as well as the cranium. The neurologic monitoring personnel confirmed satisfactory readings prior to the start of the procedure. The patient was turned prone on the operative table. The area from the mid occipital to the mid thoracic spine was prepped and draped in the usual sterile fashion posteriorly. An incision was made and centered over the C3-C7 cervical spinous processes in the midline. The scoring incision was deepened through the cervical fascia. We used Bovie cautery and Martinez elevators to carefully dissect the lateral masses and expose them from C3-C7. Radiographic confirmation was confirmed by the radiologist via a discussion. We then placed lateral mass screws at C4, C5, C6, and C7 bilaterally using standard techniques. 8 separate 3.5 x 12 mm lateral mass screws were placed uneventfully and confirmed via fluorographic views as having satisfactory placement. After placement of the lateral mass screws, we turned our attention to the decompression. We removed the ligamentum flavum and interspinous and supraspinous ligaments at C6-7. We proceeded proximally with the decompression. This includes a laminectomy of C6, C5, C4, and C3. All intervening ligamentum flavum and ligamentous material was removed. Bone obtained from the laminectomies was saved in a separate sterile container for later use. After the decompression, the spinal cord could be clearly visualized from C3-C7 and was fully decompressed. It was seen to expand nicely. We copiously irrigated the wound. We then decorticated the facet joints and lateral masses from C3-4, C4-5, C5-6, and C6-7 bilaterally until bleeding bone was obtained. We then used the autograft bone obtained from the laminectomy/decompression from C3-C7 and placed it over the lateral masses and facet joints in these regions. We then placed rods within the screw heads from C4-C7 bilaterally. We subsequently placed screw caps over the Rods and locked and finally tightened the construct in standard fashion. We then closed the wound in layers with 1 Vicryl for the Fascia, 2-0 Vicryl for the more superficial fascia and 2-0 Vicryl was used for skin closure. Dermabond was paced over the wound. Sterile dressing was placed over the wound as well. Cervical collar was placed. Patient was turned supine and extubated on the Hospital Bed. The patient was in good condition at the end of the procedure. All sponge counts, needle counts, and Instruments were correct at the end of the procedure. Anesthesia: GETA Surgeon: Judson Mir Jr Was there an chemistry research assistant present: No Estimated blood loss (cc): 100 Specimen: none Condition: stable Disposition: PACU
--- NOTE | 2018-08-04 21:13 | Anesthesia Evaluation Post Op ---
Date of Encounter: 08/04/18 Time of Encounter: 09:10 - Vital Signs Vital Signs: Selected Entries 08/04/18 20:47 08/04/18 20:57 Temperature 97.1 F L Pulse Rate 74 Respiratory Rate 16 - Lungs Lungs: Rales, Rhonchi, Treatment Ordered (received breathing treatment, resp. status improved.) - Airway Airway: Non-obstructed - Cardiovascular Regular Rate - Mental Status Mental Status: Alert & Oriented, Answers Appropriately (Initially confused, but has improved over PACU stay.) - Nausea Vomiting Nausea Vomiting: Not Present - Hydration Hydration: NPO - Discharge PostOp Status: Transfer Patient to floor
[2018-08-04] MEDS ORDERED: Acetaminophen 325 MG TABLET PO PRN (21:28)
[2018-08-04] MEDS ORDERED: Ringers Solution, Lactated 1,000 ML IVC SCH (21:28)
[2018-08-04] MEDS ORDERED: Ondansetron 4 MG/2 ML VIAL IVP PRN (21:28)
[2018-08-04] MEDS ORDERED: Naloxone 0.4 MG/ML INJ IVP PRN (21:28)
[2018-08-04] MEDS: Cholecalciferol (D-3) 1,000 UNIT TABLET PO SCH (22:35)
[2018-08-05] MEDS: *HR* HYDROcodone/Acet 5/325 mg TABLET PO PRN ×2 (06:30→15:56)
--- NOTE | 2018-08-05 08:51 | Orthopedics Progress Note ---
Date of Encounter: 08/05/18 Time of Encounter: 09:00 - Assessment and Plan (1) Status post cervical spinal fusion Current Visit: Yes Status: Acute (2) Cervical myelopathy Current Visit: Yes Status: Chronic (3) Cervical spinal cord compression Current Visit: Yes Status: Chronic (4) Cervical stenosis of spinal canal Current Visit: Yes Status: Chronic (5) Myelomalacia of cervical cord Current Visit: Yes Status: Chronic Subjective Principal diagnosis: Cervical stenosis, cervical myelopathy, myelomalacia of the cervical cord Interval history: POD#1 Date of procedure: 08/04/18 Pre-op diagnosis: Cervical stenosis, cervical myelopathy, myelomalacia cervical cord Post-op diagnosis: same Operation/Findings: Posterior cervical fusion C3-C7 Patient states she is doing very well since surgery. She states she has improved sensation and use of all limbs and states has been going to/from bathroom with 's assistance. States desire to go home today rather than to rehab. Resting comfortably in bed - collar at bedside Spouse at bedside Alert and oriented x 3 No drainage noted from incision ROM b/l UE to near shoulder level, below shoulder level with right arm. Motion intact to b/l ankles/feet Neurovascularly intact to all extremities Xrays pending Participating in PT/OT - they are recommending snf/ecf upon discharge. Discussed with patient and spouse encouraged continued reevaluation by PT/OT and open mindedness regarding safety at home. Discussed we want her to be safe upon discharge and sometimes that means not being at home. Patient and spouse very adamant not wanting to go to snf/ecf - want home health. Discussed collar use with all activity/ambulation Keep incision clean and dry - leave Prineo/Zipline intact Avoid NSAIDs (discussed this would also benefit her heart) for pain Discussed opioid pain medication and risks/appropriate use - verbalized understanding and agreement Use walker - patient states she has one at home ---- one was not noted to be present in room at time of visit No lifting greater than 5-10lbs Keep outpatient follow up - call [facility] with any questions or concerns Objective Vital signs: Vital Signs Temp Pulse Resp BP Pulse Ox 08/05/18 06:46 99.2 F 89 14 123/62 95 08/05/18 04:26 98.0 F 82 15 124/65 96 08/05/18 00:30 72 10 105/65 100 08/04/18 23:24 97.7 F 84 14 130/74 100 08/04/18 22:43 97.8 F 80 14 129/75 100 08/04/18 22:20 84 14 142/69 96 08/04/18 22:01 97.0 F L 78 14 150/77 99 08/04/18 21:40 97.0 F L 80 150/75 99 08/04/18 21:17 24 16 129/87 100 08/04/18 21:07 97.4 F L 99 20 103/60 100 08/04/18 20:57 74 16 76/51 100 08/04/18 20:47 97.1 F L 74 16 92/84 100 08/04/18 20:37 77 16 117/73 91 08/04/18 20:27 80 16 122/60 91 08/04/18 20:17 97.3 F L 93 16 143/89 98 08/04/18 11:18 97.6 F 57 15 117/71 96 Intake and Output 08/04/18 08/05/18 08/05/18 23:59 07:59 15:59 Output Total 450 / 450 600 / 600 Balance -450 / -450 -600 / -600 Output: Urine 350 / 350 Estimated Blood Loss 100 / 100 Catheter 600 / 600 Other: Weight 44.3 kg Patient Weight 08/05/18 23:59 Weight 44.3 kg - Labs CBC & BMP: 08/04/18 05:30 08/04/18 05:30 Labs: Abnormal lab results BUN/Creatinine Ratio 30 (6-26) H 08/04/18 05:30 Phosphorus 4.6 mg/dL (2.7-4.5) H 08/04/18 05:30 LDL Cholesterol, Calc 101 mg/dL (0-99) H 08/03/18 08:32 HDL Cholesterol 61 mg/dL (40-59) H 08/03/18 08:32 - VTE Reasons for not Prescribing Prophylaxis: Treatment not Indicated - Low risk for VTE Consult Discharge Plan - Plan Referrals: NONE,PCP [Primary Care Provider] - Prescriptions: OxyCODONE Immed Rel [Roxicodone 5 MG] 5 mg PO Q6HR PRN 7 Days #28 tablet PRN Reason: Severe Pain Docusate Sodium [Colace] 100 mg PO BID 5 Days #10 capsule
[2018-08-05] MEDS ORDERED: hydrOXYzine pamoate 25 MG CAPSULE PO SCH (09:00)
[2018-08-05] MEDS: Cholecalciferol (D-3) 1,000 UNIT TABLET PO SCH (10:23)
[2018-08-05] MEDS: ALPRAZolam 1 MG TABLET PO SCH ×2 (10:23→15:56)
[2018-08-05 15:38] VITALS: BP 155/74
--- NOTE | 2018-08-05 15:43 | Discharge Summary ---
- NOTES TO OUTPATIENT PROVIDER Notes to Outpatient Provider: Patient was admitted for cervical stenosis and underwent fusion of C3-C7 on 08/04 uneventfully. Post-op, she was recommended to transfer to ECF for further therapy but declined and opted for home health. Of note, her pre-operative workup showed abnormal EKG and Echo and LHC showed non- obstructive CAD. Unclear etiology of cardiomyopathy with EF 40-45%. Will be discharged home on ASA, bb, statin, and with cardiology follow up outpatient. Orders not resulted at time of discharge: Pending orders 08/01/18 16:07 Culture,Urine [RM] Routine Date of Encounter: 08/05/18 Time of Encounter: 13:00 - Discharge Diagnosis (1) Cervical myelopathy Priority: Primary Status: Chronic (2) Nonspecific abnormal electrocardiogram (ECG) (EKG) Priority: Secondary Status: Acute (3) Hypertension Priority: Secondary Status: Chronic Qualifiers: Hypertension type: essential hypertension Qualified Code(s): I10 - Essential (primary) hypertension (4) COPD (chronic obstructive pulmonary disease) Priority: Secondary Status: Chronic Qualifiers: COPD type: unspecified COPD Qualified Code(s): J44.9 - Chronic obstructive pulmonary disease, unspecified Hospital course: Ms. Qureshi is a 63 year old female with PMHx of HTN, COPD, GERD, was admitted for cervical stenosis and underwent fusion of C3-C7 on 08/04 uneventfully. Post- op, she was recommended to transfer to ECF for further therapy but declined and opted for home health. Of note, her pre-operative workup showed abnormal EKG and Echo and LHC showed non-obstructive CAD. Unclear etiology of cardiomyopathy with EF 40-45%. Will be discharged home on ASA, bb, statin, and with cardiology follow up outpatient. Discharge discussed with: patient, family, nurse, social work, case management - Time Spent with Patient Total time spent providing and/or coordinating discharge services: 35 mins - Discharge Medications Prescriptions: OxyCODONE Immed Rel [Roxicodone 5 MG] 5 mg PO Q6HR PRN 7 Days #28 tablet PRN Reason: Severe Pain Aspirin Enteric Coated [Aspirin EC] 81 mg PO DAILY #30 tablet. Docusate Sodium [Colace] 100 mg PO BID 5 Days #10 capsule Home Medications: ALPRAZolam [Xanax 1 MG Tablet] 1 mg PO TID 08/01/18 [History] Gabapentin [Neurontin] 600 mg PO TID 08/01/18 [History] Metoprolol [Lopressor] 50 mg PO BID 08/01/18 [History] Temazepam [Restoril] 30 mg PO HS 08/01/18 [History] Cholecalciferol (Vitamin D3) [Vitamin D3] 10,000 unit PO QWEEK 08/02/18 [History] Cyclobenzaprine [Flexeril] 10 mg PO TID 08/02/18 [History] HydrOXYzine Pamoate [Vistaril] 50 mg PO DAILY 08/02/18 [History] Omeprazole [PriLOSEC] 40 mg PO DAILY 08/02/18 [History] Sertraline [Zoloft] 50 mg PO DAILY 08/02/18 [History] Simvastatin [Zocor] 40 mg PO HS 08/02/18 [History] Aspirin Enteric Coated [Aspirin EC] 81 mg PO DAILY #30 tablet. 08/05/18 [Rx] Docusate Sodium [Colace] 100 mg PO BID 5 Days #10 capsule 08/05/18 [Rx] OxyCODONE Immed Rel [Roxicodone 5 MG] 5 mg PO Q6HR PRN 7 Days #28 tablet 08/05/18 [Rx] Allergies/Adverse Reactions: Allergy/AdvReac Type Severity Reaction Status Date / Time No Known Allergies Allergy Verified 08/01/18 14:38 Date of admission: 08/04/18 11:50 Primary care physician: PCP NONE Consults: 08/01/18 22:11 Consult to Cardiology [CONS] Routine Comment: Consulting Provider: Cardiology Xi Reason for Consult: Preop patient with EKG with ST changes Time Notified: 22:12 Call Completed: No 08/04/18 21:28 Consult to Occupational Therapy [CONS] Routine Comment: Evaluate, develop and implement POC Reason for Consult: Postoperative rehabilitation Does patient have active BEDREST order?: No Is patient medically & hemodynamically stable?: Yes Patient assessed for mobility or mobilized this visit?: No Consult to Physical Therapy [CONS] Routine Comment: Evaluate, develop and implement POC Reason for Consult: Postoperative rehabilitation Does patient have active BEDREST order?: No Is patient medically & hemodynamically stable?: Yes Patient assessed for mobility or mobilized this visit?: No Consult to Spine Navigator [CONS] [CONS] Routine - Constitutional Vitals: Temp Pulse Resp BP Pulse Ox 97.6 F 101 14 155/74 95 08/05/18 15:35 08/05/18 15:35 08/05/18 15:35 08/05/18 15:35 08/05/18 15:35 General appearance: Present: A&O X 3, pleasant, no acute distress Exam: Vitals: Reviewed. General: Alert and oriented x4. Cardiovascular: RRR, Normal S1 & S2, no rubs, murmurs or gallops. Lungs: Clear to auscultation bilaterally, no wheezes or crackles. Abdomen: Soft, non-tender, no rigidity. Extremities: No deformity, no edema or tenderness, Neurological: Grossly non-focal - Patient Status Disposition: Home Health Service Condition: Fair Overall status at discharge: patient is progressing back to baseline - Discharge Instructions Instructions: Chronic Obstructive Pulmonary Disease (DC), Chronic Hypertension (DC) Follow Up With: NONE,PCP [Primary Care Provider] - Melissa Ayala DO [Partnered Physician] - Judson Mir Jr, MD [Partnered Physician] - Additional Instructions: Collar use with all activity/ambulation Keep incision clean and dry - leave Prineo/Zipline intact Use walker, no lifting greater than 5-10lbs Outpatient follow up with cardiology and spine surgery - Diet and Activity Activity: as per physical therapy Diet: low salt diet - VTE Reasons for not Prescribing Prophylaxis: Treatment not Indicated - Low risk for VTE
--- NOTE | 2018-08-05 15:59 | Physician Discharge Referral ---
Home Health/Hosp Referral Info Transfer to: Home Health - Diagnosis (1) Cervical myelopathy Priority: Primary Status: Chronic (2) Nonspecific abnormal electrocardiogram (ECG) (EKG) Priority: Secondary Status: Acute (3) Hypertension Priority: Secondary Status: Chronic (4) COPD (chronic obstructive pulmonary disease) Priority: Secondary Status: Chronic - Respiratory Orders Smoking Cessation: Smoking cessation has been advised. For more information, call the [place] Tobacco Quit Line at 4-375-QNUM-NOW. - Dressing/Wound Care Type of Dressing/Treatments w/Frequency: Collar use with all activity/ambulation Keep incision clean and dry - leave Prineo/Zipline intact Use walker, no lifting greater than 5-10lbs - Transfer Medications Prescriptions: OxyCODONE Immed Rel [Roxicodone 5 MG] 5 mg PO Q6HR PRN 7 Days #28 tablet PRN Reason: Severe Pain Aspirin Enteric Coated [Aspirin EC] 81 mg PO DAILY #30 tablet. Docusate Sodium [Colace] 100 mg PO BID 5 Days #10 capsule Home Medications: ALPRAZolam [Xanax 1 MG Tablet] 1 mg PO TID 08/01/18 [History] Gabapentin [Neurontin] 600 mg PO TID 08/01/18 [History] Metoprolol [Lopressor] 50 mg PO BID 08/01/18 [History] Temazepam [Restoril] 30 mg PO HS 08/01/18 [History] Cholecalciferol (Vitamin D3) [Vitamin D3] 10,000 unit PO QWEEK 08/02/18 [History] Cyclobenzaprine [Flexeril] 10 mg PO TID 08/02/18 [History] HydrOXYzine Pamoate [Vistaril] 50 mg PO DAILY 08/02/18 [History] Omeprazole [PriLOSEC] 40 mg PO DAILY 08/02/18 [History] Sertraline [Zoloft] 50 mg PO DAILY 08/02/18 [History] Simvastatin [Zocor] 40 mg PO HS 08/02/18 [History] Aspirin Enteric Coated [Aspirin EC] 81 mg PO DAILY #30 tablet. 08/05/18 [Rx] Docusate Sodium [Colace] 100 mg PO BID 5 Days #10 capsule 08/05/18 [Rx] OxyCODONE Immed Rel [Roxicodone 5 MG] 5 mg PO Q6HR PRN 7 Days #28 tablet 08/05/18 [Rx] Allergies/Adverse Reactions: Allergy/AdvReac Type Severity Reaction Status Date / Time No Known Allergies Allergy Verified 08/01/18 14:38 Certification: Further, I certify that my clinical findings support that this patient is homebound (i.e. absences from home require considerable and taxing effort and are for medical reasons or cheondoism services or infrequently or short duration when for other reasons) because: Homebound Reason: Patient requires assistance of a person or device to safely leave home Attestation: My signature below is to certify that this patient is under my care and that I, or nurse practitioner, or a physician's project assistant working with me, has a [id number] encounter with this patient.
== END 2018-08-05 17:09 | disposition home health service (06) | DRG 321 ==
LOC: INTOOBSV 13:20 → 3NENU 13:20 → SUATTDRO 13:20
PROVIDERS: ADMIT Internal Medicine; ATTEND Internal Medicine